=== PATIENT | female | born 1970 | race African-American/Black ===

== ENCOUNTER 2017-07-18 23:26 | Emergency (ER) | payer BC, OTHER ==
[2017-07-18] MEDS ORDERED: HYDROcodone/Acetaminophen 10/325 mg Tablet ONE (23:48)
[2017-07-18] MEDS ORDERED: Ketorolac Tromethamine 60 MG/2 ML VIAL ONE (23:48)
== END 2017-07-19 00:30 | disposition home or self-care (01) ==
LOC: NAV ERS 23:26
DX: S39.012A Strain of muscle, fascia and tendon of lower back, initial encounter (principal); X50.1XXA Overexertion from prolonged static or awkward postures, initial encounter; Z79.899 Other long term (current) drug therapy
CPT/HCPCS: 96372; J1885

== ENCOUNTER 2024-04-28 07:10 | Emergency (ER) | payer BC, OTHER ==
[2024-04-28] MEDS ORDERED: Acetaminophen 500 MG TAB ONE (07:36)
[2024-04-28 07:47] LABS: #Basophils 0.1 thou/uL (0.0-0.2); #Eosinophils 0.3 thou/uL (0.0-0.7); #Lymphocytes 3.3 thou/uL (1.20-3.40); #Monocytes 0.5 thou/uL (0.11-0.59); %Basophils 1.3 % (0.0-1.0); %Eosinophils 2.9 % (0.0-10.0); %Lymphocytes 35.7 % (21.0-51.0); %Monocytes 5.7 % (0.0-10.0); %Neutrophils 54.3 % (42.0-75.0); Hematocrit 40.9 % (36.0-47.0); Hemoglobin 12.6 g/dL (12.0-16.0); Mean Corpuscular HGB CONC 30.9 g/dL (32.0-36.0); Mean Corpuscular Volume 84.4 fl (78.0-98.0); Mean Platelet Volume 6.5 fL (7.4-10.4); Platelet Count 370 10x3/uL (130-400); RBC Distribution Width 12.7 % (11.5-14.5); Red Blood Cell (RBC) Count 4.84 mill/uL (4.20-5.40); White Blood Cell (WBC) Count 9.1 10x3/uL (4.8-10.8)
[2024-04-28 08:02] LABS: Troponin I 0.013 ng/mL (< 0.028)
[2024-04-28 08:03] LABS: ALT (SGPT) 16 U/L (8-55); AST (SGOT) 17 U/L (5-34); Albumin 4.1 g/dL (3.5-5.0); Alkaline Phosphatase 50 U/L (40-110); Anion Gap 14 mmol/L (10-20); BUN (Urea Nitrogen) 14 mg/dL (9.8-20.1); Bilirubin, Total 0.5 mg/dL (0.2-1.2); Calc. Creatinine Clearance 0 mL/min (70-130); Calcium 9.9 mg/dL (7.8-10.44); Carbon Dioxide 29 mmol/L (22-29); Chloride 100 mmol/L (98-107); Estimated GFR 83; Globulin 3.8 g/dL (2.4-3.5); Glucose 102 mg/dL (70-105); Potassium 3.8 mmol/L (3.5-5.1); Protein, Total 7.9 g/dL (6.0-8.3); Sodium 139 mmol/L (136-145)
== END 2024-04-28 09:11 | disposition home or self-care (01) ==
LOC: NAV ERS 07:10
DX: R07.81 Pleurodynia (principal); Z55.6 Problems related to health literacy
CPT/HCPCS: 71046; 80053; 84484; 85025; 85379; 93005